=== PATIENT | male | born 1995 | race Caucasian/White ===

== ENCOUNTER 2025-09-03 08:16 | Outpatient (CLI) | payer BC, SELFPAY ==
--- OUTSIDE RECORDS SUMMARY | 2025-09-03 08:22 | XMS_ITS | Clinical Summary ---
Author Organization [facility] Address [address] [place] [address] Care Team Providers Care Dye Reel Operator Helper Name Role Phone Eron Schroeder MD Primary Care Provider + Source Comments [facility],non-owned Affiliates and Associated Physician Practices is amultiple site organization consisting of ambulatory clinics and hospital sitesin [place], [place], [place] and [place]. This disclosure is being madepursuant to the Care Everywhere program and may not contain all information available regarding this patient. Last updated [email or web address] Allergies No known active allergies Medications * Be aware that medications may not be up to date on this document. Alwaysverify current medications with the patient. 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 Gender Identity Not on file Sexual Orientation Not on file Last Filed Vital Signs Vital Sign Reading Time Taken Comments Blood Pressure 122/68 09/19/2017 6:38 PM SYNCHRONOUS MOTOR ASSEMBLER Pulse 87 09/19/2017 6:38 PM SYNCHRONOUS MOTOR ASSEMBLER Temperature 36.7 C (98 F) 09/19/2017 6:38 PM SYNCHRONOUS MOTOR ASSEMBLER Respiratory Rate - - Oxygen Saturation 98% 09/19/2017 6:38 PM SYNCHRONOUS MOTOR ASSEMBLER Inhaled Oxygen Concentration - - Weight 99.8 kg (220 lb) 09/19/2017 6:38 PM SYNCHRONOUS MOTOR ASSEMBLER Height 185.4 cm (6' 1) 09/19/2017 6:38 PM SYNCHRONOUS MOTOR ASSEMBLER Body Mass Index 29.03 09/19/2017 6:38 PM SYNCHRONOUS MOTOR ASSEMBLER Plan of Treatment Health Maintenance Due Date Last Done Comments HIV SCREENING 2009 HEPATITIS C SCREENING 09/03/2012 DTAP/TDAP/TD VACCINES (1 - Tdap) 2013 HEPATITIS B VACCINE (1 of 3 - 19+ 3-dose series) 2013 PAP SMEAR 2015 HPV VACCINE (1 - 3-dose SCDM series) 2021 Cervical Cancer Screening 2024 PAP with HPV 2024 DEPRESSION SCREENING 10/09/2024 COVID-19 VACCINE (1 - 2024-2 6 season) 2025 INFLUENZA VACCINE (#1) 2025 ZOSTER VACCINE (1 of 2) 2044 HIB VACCINE Aged Out No longer eligi ble based on patient's age to complete this topic MENINGOCOCCAL (Group B) VACC INE SHARED DECISION-MAKING Aged Out No longer eligibl e based on patient's age to complete this topic MENINGOCOCCAL GROUPS A/C/Y/W VACCINE Aged Out No longer eligible b ased on patient's age to complete this topic PNEUMOCOCCAL VACCINE Aged Out No long er eligible based on patient's age to complete this topic Insurance [employer] Care Teams Dye Reel Operator Helper Relationship Specialty Start Date End Date Eron Schroeder MD [address] [place] [address] PCP - General Infectious Disease 09/19/17
--- OUTSIDE RECORDS SUMMARY | 2025-09-03 08:22 | XMS_ITS | Clinical Summary ---
Author Organization [facility] Address [address] [place] [address] Care Team Providers Care Corporate Traffic Manager Name Role Phone Eron Schroeder MD Primary Care Provider [phone] Allergies Active Allergy Reactions Criticality Noted Date Comments Minocycline Medications methylPREDNISol one (MEDROL DOSEPACK) 4 mg Dosepack Take 4 tablets by mouth 2 (two) times a day 1 Active triamcinolone (KENALOG) 0.1 % ointmentIndicat ions:Rash Apply topically twice a day as needed to worst areas of itchy rash on body. 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
[2025-09-03 12:54] LABS: Hematocrit 44.3 % (42.0-52.0); Hemoglobin 14.4 g/dL (14.0-18.0); Immature Granulocyte Percent A 0.4 % (0-0.5); Lymphocytes Absolute Auto 2.04 K/mm3 (0.9-3.2); Mean Corpuscular HGB Conc 32.5 g/dl (32-36); Mean Corpuscular Hemoglobin 28.4 pg (26-34); Mean Corpuscular Volume 87.4 fl (80-100); Nucleated Red Blood Cells Absolute Auto 0.000 K/mm3 (0.0-0.012); Nucleated Red Blood Cells Perc 0.0 % (0.0-0.2); Platelet Count Result 258 k/mm3 (150-375); Red Blood Count 5.07 M/mm3 (4.6-6.20); White Blood Count 7.3 K/mm3 (4.5-10.0)
[2025-09-03 13:06] LABS: Alanine Aminotransferase 20 U/L (6-50); Albumin Level 4.5 g/dL (3.5-5.1); Alkaline Phosphatase 48 U/L (38-126); Anion Gap 7 mmol/L (4-12); Aspartate Amino Transferase 46 U/L (17-59); Bilirubin,Total 0.6 mg/dL (0.2-1.3); Blood Urea Nitrogen 13 mg/dL (9-20); Calcium 9.2 mg/dL (8.4-10.2); Carbon Dioxide 29 mmol/L (22-30); Chloride 105 mmol/L (98-107); Cholesterol 147 mg/dL (0-200); Estimated Glomerular Filt Rate > 60; Glucose 76 mg/dL (65-110); HDL Direct 43 mg/dL; Potassium 4.1 mmol/L (3.4-5.0); Sodium 141 mmol/L (137-145); Total Protein 7.3 g/dL (6.3-8.2); Triglycerides 41 mg/dL (<150)
[2025-09-03 13:42] LABS: Thyroid Stimulating Hormone 1.490 uIU/mL (0.465-4.680)
== END 2025-09-03 08:17 | disposition home or self-care (01) ==
LOC: ANHGOSHLAB 08:17
DX: Z13.29 Encounter for screening for other suspected endocrine disorder (principal); Z13.0 Encounter for screening for diseases of the blood and blood-forming organs and certain disorders involving the immune mechanism; Z13.228 Encounter for screening for other metabolic disorders; R53.83 Other fatigue; E55.9 Vitamin D deficiency, unspecified
CPT/HCPCS: 36415; 80053; 80061; 82306; 84443; 85025